=== PATIENT | female | born 1985 | race Caucasian/White ===

== ENCOUNTER 2017-05-07 19:05 | Emergency (ER) | payer BC ==
[~2017-05-07] VITALS: Ht 160 cm; Wt 106.1 kg
--- NOTE | ~2017-05-07 | EKG ---
[address] [place] [address] ELECTROCARDIOGRAM REPORT Name: REYNALDO LOUIS [id number] Admission: 05/07/17 Attend Phys: Discharge: 05/07/17 Date of : 85 Report #: [id number] THIS REPORT FOR: //name// [facility] ED Test Date: 2017-05-07 Test Time: 20:12:05 Pat Name: REYNALDO LOUIS Department: Room: Gender: F Mobile Home Set Up Person: JACK : 1985 Requested By: Tom Caicedo Order Number: [id number] MD: Karel Torres Measurements Intervals [place] Rate: 73 P: 37 OK: 148 QRS: 6 QRSD: 86 T: 26 QT: 398 QTc: 439 Interpretive Statements Sinus rhythm No significant abnormality No previous ECG available for comparison Electronically Signed On 05-08-2017 7:52:19 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
[2017-05-07 19:28] LABS: URINE BILIRUBIN NEGATIVE (Negative); URINE BLOOD TRACE (Negative); URINE CLARITY CLEAR; URINE COLOR YELLOW; URINE GLUCOSE-RANDOM* NEGATIVE (Negative); URINE KETONES NEGATIVE (Negative); URINE LEUKOCYTES-REFLEX NEGATIVE (Negative); URINE NITRITE-REFLEX NEGATIVE (Negative); URINE PROTEIN (DIPSTICK) NEGATIVE (Negative); URINE SPECIFIC GRAVITY <= 1.005 (1.005-1.035); URINE UROBILINOGEN 0.2 E.U./dl (0.2-1.0)
[2017-05-07 20:38] LABS: ABSOLUTE NEUTROPHILS 5.7 thou/uL (1.4-8.2); EOSINOPHILS 0.8 % (0.0-3.0); HEMATOCRIT 40.5 % (37.0-47.0); HEMOGLOBIN 14.2 gm/dL (12.0-15.0); LYMPHOCYTES 26.2 % (24.0-44.0); MCH 30.5 pg (26.0-34.0); MCV 87.2 fL (80.0-100.0); MONOCYTES 5.9 % (1.0-8.0); PLATELET COUNT 204 thou/uL (150-400); POLYS 66.1 % (36.0-66.0); RBC 4.65 mil/uL (4.20-5.00); RDW 13.8 % (10.5-14.5); WBC 8.7 thou/uL (4.0-11.0)
[2017-05-07] MEDS ORDERED: PREVACID15 MG PO (20:40)
[2017-05-07 20:45] LABS: ANION GAP 9 mmol/L (7-16); BUN 7 mg/dL (7-18); CALCIUM 8.8 mg/dL (8.5-10.1); CHLORIDE 105 mmol/L (98-107); CO2 24 mmol/L (21-32); CREATININE 0.8 mg/dL (0.6-1.0); GLUCOSE 92 mg/dL (74-106); POTASSIUM 3.5 mmol/L (3.5-5.1); SODIUM 138 mmol/L (136-145)
[2017-05-07 20:53] LABS: ALBUMIN 3.6 g/dL (3.4-5.0); LIPASE 107 U/L (73-393); SGOT 30 U/L (15-37); SGPT 44 U/L (30-65); TOTAL BILIRUBIN 0.5 mg/dL (<0.1-1.0); TOTAL PROTEIN 7.4 g/dL (6.4-8.2); TROPONIN-I < 0.04 ng/mL (<0.06)
[2017-05-07] MEDS ORDERED: ZOFRAN ODT8 MG PO (21:18)
[2017-05-07 21:38] VITALS: BP 137/77
== END 2017-05-07 21:48 | disposition home or self-care (01) ==
LOC: ER 19:05
PROVIDERS: Emergency Medicine
DX: K21.9 Gastro-esophageal reflux disease without esophagitis (principal); R11.2 Nausea with vomiting, unspecified; F17.210 Nicotine dependence, cigarettes, uncomplicated; Z90.49 Acquired absence of other specified parts of digestive tract

== ENCOUNTER 2017-08-28 00:50 | Emergency (ER) | payer BC ==
[~2017-08-28] VITALS: Ht 160 cm; Wt 104.3 kg
[~2017-08-28 00:50] MED LIST: PREVACID15 MG PO; ZOFRAN ODT8 MG PO
[2017-08-28 01:08] LABS: URINE BILIRUBIN NEGATIVE (Negative); URINE BLOOD 2+ (Negative); URINE CLARITY CLOUDY; URINE COLOR YELLOW; URINE GLUCOSE-RANDOM* NEGATIVE (Negative); URINE KETONES NEGATIVE (Negative); URINE LEUKOCYTES NEGATIVE (Negative); URINE NITRITE NEGATIVE (Negative); URINE PROTEIN (DIPSTICK) TRACE (Negative); URINE SPECIFIC GRAVITY >= 1.030 (1.005-1.035); URINE UROBILINOGEN 0.2 E.U./dl (0.2-1.0)
[2017-08-28 01:21] LABS: AMORPHOUS URATES Many /LPF (None Seen); CASTS None Seen /LPF (None Seen); MUCUS None Seen strn/LPF (None Seen); SQUAMOUS None Seen /LPF (0-3); URINE WBC 0-5 Rare /HPF (0-5)
[2017-08-28 01:22] LABS: BACTERIA None Seen /HPF (None Seen); CRYSTALS None Seen /LPF (None Seen); URINE RBC 0-2 Rare /HPF (0-2)
[2017-08-28] MEDS ORDERED: PROTONIX40 M1 PO (01:25)
[2017-08-28 01:30] LABS: ABSOLUTE NEUTROPHILS 8.5 thou/uL (1.4-8.2); BASOPHILS 0.8 % (0.0-2.0); EOSINOPHILS 1.3 % (0.0-3.0); HEMATOCRIT 41.5 % (37.0-47.0); HEMOGLOBIN 14.4 gm/dL (12.0-15.0); LYMPHOCYTES 20.1 % (24.0-44.0); MCH 30.2 pg (26.0-34.0); MCHC 34.8 g/dL (28.0-37.0); MCV 86.7 fL (80.0-100.0); PLATELET COUNT 237 thou/uL (150-400); POLYS 72.8 % (36.0-66.0); RBC 4.79 mil/uL (4.20-5.00); RDW 13.9 % (10.5-14.5); WBC 11.6 thou/uL (4.0-11.0)
[2017-08-28 01:36] LABS: CALCIUM 8.9 mg/dL (8.5-10.1); CREATININE 1.1 mg/dL (0.6-1.0); POTASSIUM 3.5 mmol/L (3.5-5.1)
[2017-08-28] MEDS ORDERED: IBUPROFEN 800800 MG PO (03:00)
[2017-08-28] MEDS ORDERED: NORCO 5-325 TA1 EACH PO (03:00)
[2017-08-28] MEDS ORDERED: ZOFRAN ODT4 MG PO (03:00)
[2017-08-28 03:32] VITALS: BP 138/78
== END 2017-08-28 03:33 | disposition home or self-care (01) ==
LOC: ER 00:50
PROVIDERS: Emergency Medicine
DX: N20.1 Calculus of ureter (principal); R11.2 Nausea with vomiting, unspecified; F17.210 Nicotine dependence, cigarettes, uncomplicated; Z90.49 Acquired absence of other specified parts of digestive tract

== ENCOUNTER 2018-08-14 20:04 | Emergency (ER) | payer BC ==
[~2018-08-14] VITALS: Ht 160 cm; Wt 106.6 kg
[~2018-08-14 20:04] MED LIST changes: +IBUPROFEN 800800 MG PO; +NORCO 5-325 TA1 EACH PO; +PROTONIX40 M1 PO; +ZOFRAN ODT4 MG PO
[2018-08-14 22:23] VITALS: BP 156/99
== END 2018-08-14 22:23 | disposition home or self-care (01) ==
LOC: ER 20:04
DX: I10 Essential (primary) hypertension (principal); F17.210 Nicotine dependence, cigarettes, uncomplicated; Z90.49 Acquired absence of other specified parts of digestive tract; Z98.890 Other specified postprocedural states

== ENCOUNTER 2019-10-23 13:19 | Emergency (ER) | payer BC ==
[~2019-10-23] VITALS: Ht 160 cm; Wt 65.8 kg
[2019-10-23] MEDS ORDERED: BISOPROLOL-HCT1 EAC2 PO (13:28)
[2019-10-23 14:05] LABS: BASOPHILS 0.9 % (0.0-2.0); EOSINOPHILS 0.4 % (0.0-3.0); HEMATOCRIT 39.3 % (37.0-47.0); HEMOGLOBIN 14.1 gm/dL (12.0-15.0); LYMPHOCYTES 25.8 % (24.0-44.0); MCHC 35.9 g/dL (28.0-37.0); MCV 86.4 fL (80.0-100.0); MONOCYTES 6.1 % (1.0-8.0); PLATELET COUNT 228 thou/uL (150-400); POLYS 66.8 % (36.0-66.0); RBC 4.55 mil/uL (4.20-5.00); RDW 14.2 % (10.5-14.5)
[2019-10-23 14:08] LABS: URINE BILIRUBIN 1+ (Negative); URINE BLOOD 1+ (Negative); URINE CLARITY CLEAR; URINE COLOR YELLOW; URINE GLUCOSE-RANDOM* NEGATIVE (Negative); URINE KETONES NEGATIVE (Negative); URINE LEUKOCYTES-REFLEX NEGATIVE (Negative); URINE NITRITE-REFLEX NEGATIVE (Negative); URINE PROTEIN (DIPSTICK) TRACE (Negative); URINE SPECIFIC GRAVITY 1.025 (1.005-1.035); URINE UROBILINOGEN 0.2 E.U./dl (0.2-1.0)
[2019-10-23 14:19] LABS: ANION GAP 13 mmol/L (7-16); BUN 14 mg/dL (7-18); CALCIUM 8.7 mg/dL (8.5-10.1); CHLORIDE 103 mmol/L (98-107); CO2 23 mmol/L (21-32); GLUCOSE 137 mg/dL (74-106); POTASSIUM 3.5 mmol/L (3.5-5.1); SODIUM 139 mmol/L (136-145)
[2019-10-23 14:19] LABS: HYALINE CASTS 0-3 Few /LPF (None Seen); MUCUS 4-6 Moderate strn/LPF (None Seen); SQUAMOUS 4-10 Moderate /LPF (0-3)
[2019-10-23 14:20] LABS: BACTERIA-REFLEX 1-9 Few /HPF (None Seen); CRYSTALS None Seen /LPF (None Seen); URINE RBC 3-10 Few /HPF (0-2); URINE WBC-REFLEX None Seen /HPF (0-5)
[2019-10-23 14:25] LABS: ALBUMIN 3.8 g/dL (3.4-5.0); MAGNESIUM 1.9 mg/dL (1.8-2.4); SGOT 28 U/L (15-37); SGPT 44 U/L (30-65); TOTAL BILIRUBIN 0.5 mg/dL (0.2-1.0); TOTAL PROTEIN 7.7 g/dL (6.4-8.2); TROPONIN-I <0.06 ng/mL (<0.06)
[2019-10-23 15:31] VITALS: BP 118/62
== END 2019-10-23 15:31 | disposition home or self-care (01) ==
LOC: ER 13:19
PROVIDERS: Physician Assistant
DX: G43.909 Migraine, unspecified, not intractable, without status migrainosus (principal); I10 Essential (primary) hypertension; F17.210 Nicotine dependence, cigarettes, uncomplicated; Z98.890 Other specified postprocedural states; Z90.49 Acquired absence of other specified parts of digestive tract; Z79.899 Other long term (current) drug therapy

== ENCOUNTER 2020-02-13 12:16 | Emergency (ER) | payer BC ==
[~2020-02-13] VITALS: Ht 160 cm; Wt 108.9 kg
[~2020-02-13 12:16] MED LIST changes: +BISOPROLOL-HCT1 EAC2 PO
[2020-02-13 12:22] VITALS: BP 162/73
[2020-02-13 14:46] LABS: URINE BILIRUBIN NEGATIVE (Negative); URINE BLOOD TRACE (Negative); URINE CLARITY CLEAR; URINE COLOR YELLOW; URINE GLUCOSE-RANDOM* NEGATIVE (Negative); URINE KETONES NEGATIVE (Negative); URINE LEUKOCYTES-REFLEX NEGATIVE (Negative); URINE NITRITE-REFLEX NEGATIVE (Negative); URINE PROTEIN (DIPSTICK) NEGATIVE (Negative); URINE UROBILINOGEN 0.2 E.U./dl (0.2-1.0)
[2020-02-13 15:02] LABS: ABSOLUTE NEUTROPHILS 5.1 thou/uL (1.4-8.2); BASOPHILS 1.4 % (0.0-2.0); HEMATOCRIT 42.5 % (37.0-47.0); HEMOGLOBIN 14.4 gm/dL (12.0-15.0); LYMPHOCYTES 28.7 % (24.0-44.0); MCH 28.9 pg (26.0-34.0); MCHC 33.9 g/dL (28.0-37.0); MCV 85.1 fL (80.0-100.0); PLATELET COUNT 257 thou/uL (150-400); POLYS 61.9 % (36.0-66.0); RDW 14.7 % (10.5-14.5); WBC 8.2 thou/uL (4.0-11.0)
[2020-02-13 15:18] LABS: CALCIUM 9.3 mg/dL (8.5-10.1); CREATININE 0.9 mg/dL (0.6-1.0); POTASSIUM 3.9 mmol/L (3.5-5.1)
[2020-02-13 15:22] LABS: TOTAL BILIRUBIN 0.5 mg/dL (0.2-1.0)
[2020-02-13] MEDS ORDERED: ONDANSETRON HCL4 M2 PO (16:10)
[2020-02-13] MEDS ORDERED: NORCO 5-325 TA1 EAC2 PO (16:10)
== END 2020-02-13 16:41 | disposition home or self-care (01) ==
LOC: ER 12:16
PROVIDERS: Emergency Medicine; Physician Assistant
DX: N23 Unspecified renal colic (principal); R11.2 Nausea with vomiting, unspecified; I10 Essential (primary) hypertension; F17.210 Nicotine dependence, cigarettes, uncomplicated; Z87.442 Personal history of urinary calculi; Z90.49 Acquired absence of other specified parts of digestive tract; Z90.89 Acquired absence of other organs; Z98.890 Other specified postprocedural states; Z79.899 Other long term (current) drug therapy